=== PATIENT | female | born 1940 | race Caucasian/White ===

== ENCOUNTER → 2023-09-29 08:01 | Outpatient (REF) | payer MEDICARE, SELFPAY ==
[2023-09-29 09:25] LABS: ALT (SGPT) 16 U/L (0-35); AST (SGOT) 20 U/L (14-36); Albumin 4.2 g/dl (3.5-5.0); Alkaline Phosphatase 100 U/L (38-126); Direct Bilirubin 0.3 mg/dl (0.0-0.4); Glucose 129 mg/dl (70-99); HDL Cholesterol 67 mg/dl; LDL Cholesterol, Calculated 142 mg/dl; Total Bilirubin 0.5 mg/dl (0.2-1.3); Total Cholesterol 253 mg/dl (50-199); Total Protein 7.1 g/dl (6.3-8.2); Triglyceride 223 mg/dl (10-149); Very Low Density Lipoprotein 44 mg/dl (0-30)
[2023-09-29 14:35] LABS: Glycohemoglobin (HgbA1c) 6.2 % (4.0-5.6)
== END ==
LOC: REG 08:01
PROVIDERS: ATTENDING PHYSICIAN Internal Medicine
DX: E11.9 Type 2 diabetes mellitus without complications (principal); I10 Essential (primary) hypertension; E78.00 Pure hypercholesterolemia, unspecified; E66.09 Other obesity due to excess calories
CPT/HCPCS: 36415; 80061; 80076; 82947; 83036

== ENCOUNTER → 2024-02-06 08:28 | Outpatient (REF) | payer MEDICARE, SELFPAY ==
[2024-02-06 09:06] LABS: % Basophils 1.2 % (0-2); % Eosinophils 1.9 % (0-6); % Immature Granulocytes 0.8 % (0-0.5); % Lymphocytes 27.8 % (20.5-51.1); % Monocytes 7.6 % (1.7-9.3); % Neutrophils 60.7 % (42.2-75.2); Absolute Basophils 0.1 10^3/uL (0-0.2); Absolute Eosinophils 0.2 10^3/uL (0-0.7); Absolute Immature Granulocytes 0.1 10^3/uL (0-0.05); Absolute Lymphocytes 2.5 10^3/uL (1.2-3.4); Absolute Monocytes 0.7 10^3/uL (0.1-0.6); Absolute Neutrophils 5.4 10^3/uL (1.4-6.5); Hematocrit 40.8 % (37.0-47.0); Hemoglobin 13.6 g/dL (12.0-16.0); Mean Corp Hgb Conc. 33.3 g/dL (33.0-37.0); Mean Corpuscular Hgb 27.7 pg (27.0-31.0); Mean Corpuscular Volume 83.1 fL (81.0-99.0); Mean Platelet Volume 9.5 fL (7.4-10.4); Nucleated Red Blood Cells % 0 %; Platelet Count 341 10^3/uL (130-400); Red Blood Cell Count 4.91 10^6/uL (4.20-5.40); Red Cell Dist. Width 14.3 % (11.5-14.5)
[2024-02-06 09:54] LABS: Glycohemoglobin (HgbA1c) 5.9 % (4.0-5.6)
[2024-02-06 10:28] LABS: ALT (SGPT) 17 U/L (0-35); AST (SGOT) 23 U/L (14-36); Albumin 4.3 g/dl (3.5-5.0); Alkaline Phosphatase 107 U/L (38-126); Blood Urea Nitrogen 16 mg/dl (7-17); Calcium 9.6 mg/dl (8.4-10.2); Carbon Dioxide 18 mmol/L (22-30); Chloride 103 mmol/L (98-107); Glucose 143 mg/dl (70-99); HDL Cholesterol 63 mg/dl; LDL Cholesterol, Calculated 140 mg/dl; Potassium 4.4 mmol/L (3.5-5.1); Sodium 138 mmol/L (135-145); Total Bilirubin 0.5 mg/dl (0.2-1.3); Total Cholesterol 264 mg/dl (50-199); Total Protein 6.9 g/dl (6.3-8.2); Triglyceride 308 mg/dl (10-149); Very Low Density Lipoprotein 61 mg/dl (0-30); eGFR > 60.00
== END ==
LOC: REG 08:28
PROVIDERS: ATTENDING PHYSICIAN Internal Medicine
DX: E11.9 Type 2 diabetes mellitus without complications (principal); E78.00 Pure hypercholesterolemia, unspecified; Z00.00 Encounter for general adult medical examination without abnormal findings
CPT/HCPCS: 36415; 80053; 80061; 83036; 85025

== ENCOUNTER → 2024-02-28 13:23 | Outpatient (REF) | payer MEDICARE, SELFPAY ==
[2024-02-28 15:13] LABS: Vitamin B12 970 pg/ml (239-931)
== END ==
LOC: REG 13:23
PROVIDERS: ATTENDING PHYSICIAN Psychiatry & Neurology Neurology; FAMILY PHYSICIAN Internal Medicine
DX: E53.8 Deficiency of other specified B group vitamins (principal)
CPT/HCPCS: 36415; 82607; 83921

== ENCOUNTER 2024-06-24 11:18 | Emergency (ER) | payer MEDICARE, SELFPAY ==
[2024-06-24 11:44] VITALS: BP 138/78
[2024-06-24 13:40] VITALS: BP 174/96
--- NOTE | 2024-06-24 13:49 | ED.GENMED ---
History of Present Illness
General
Chief Complaint: Fall
Source: patient
Exam Limitations: none
Time Seen by Provider: 06/24/24 13:19
Nursing documentation reviewed up to this point in time: agreed with
History of Present Illness
History of Present Illness:
84-year-old female presents to the ER after mechanical fall and head injury. Patient was at home with caregiver and was standing and missed her footing. She hit her head on the no loss of consciousness. She was assisted up with assistance by
caregiver. She is not on blood thinners. She denies any headache. Daughter and caregiver at bedside. Patient is at baseline mental status. No other injuries or complaints. Patient denies any dizziness chest pain or lightheadedness prior to
episode.
Past History
Past History
ED Past Medical History: GERD, HTN and Other (Arthritis, glaucoma, osteoporosis, Slight dementia)
ED Past Surgical History: Appendectomy, Cholecystectomy and Gynecological (Hysterectomy)
Social History
Tobacco: Former smoker
Alcohol: Occasional
Drug: None
Personal:
Living: with family
Employment: Not employed
Family History
Family History: Other (Dad with COPD)
Review of Systems
Review of Systems
Allergies reviewed?: Yes
All Other Systems: ROS reviewed and negative except as documented in HPI and ROS
Constitutional: Reports no symptoms
Respiratory: Reports no symptoms
Cardiac: Reports no symptoms
ABD/GI: Reports no symptoms; Denies nausea or vomiting
: Reports no symptoms
Musculoskeletal: Reports no symptoms; Denies joint pain, muscle pain, neck pain or back pain
Skin: Reports no symptoms
Neurological: Denies dizzy, headache, weakness or numbness
Phy Exam
General Physical Exam
General Presentation: no apparent distress
General age: appears stated age
General Skin: warm and dry
General Habitus: elderly
General Mental: alert
General Hydration: appears well hydrated
Eye Exam
Eye Exam: PERRL and EOMI
Eye Exam General: PERRL: bilateral and EOM intact: bilateral
Pupil Exam: Bilateral: round and reactive
Neurological Exam
Neurological Exam: alert and oriented x3
Musculoskeletal Exam
Musculoskeletal Exam: full ROM and other (No bony cervical motion tenderness, full range of motion to upper/ lower extremities ;small amount of redness to forehead no break in skin)
Skin Exam
Skin Exam: normal color and warm/dry
Psychiatric Exam
Psychiatric Exam: normal mood/affect
Course
Orders/Labs/Results
Orders:
Orders
06/24/24 11:47
CT Head W/o Iv Contrast Urgent
Comment: no thinners
Reason For Exam: fell and hit face and head
Vital Signs
Initial and Last Documented VS:
Initial Vital Signs
Temp Pulse Resp BP Pulse Ox
98.2 F 110 16 138/78 98
06/24/24 11:44 06/24/24 11:44 06/24/24 11:44 06/24/24 11:44 06/24/24 11:44
Last Documented Vital Signs
Temp Pulse Resp BP Pulse Ox
98.2 F 110 20 174/96 97
06/24/24 11:44 06/24/24 11:44 06/24/24 13:40 06/24/24 13:40 06/24/24 13:40
MDM/Problems Addressed
Differential Diagnosis Includes:
Not limited to head injury, intracranial hemorrhage
MDM/Problems Addressed:
Patient is an 84-year-old female brought in for mechanical fall no blood thinners no loss of consciousness no headache somata redness to forehead with no break in skin CAT scan negative no bony cervical spine tenderness. Patient with good range of
motion to all extremities and with a steady gait at baseline as per family will discharge home.
*Radiology
Radiology exam reviewed: radiology read reviewed
*Pulse Oximetry
Patient hypoxic: no
*Critical Care Note
Total Time (30-74mins, 75-104mins- exclusive of procedures): Not Applicable
ED Attending Note
-
Portions of this chart may have been created with voice recognition software.� Occasional wrong word or��sound alike� substitutions may have occurred due to the inherent limitations of voice recognition software.
Discharge Plan
Departure
Patient Disposition: Home (Routine Discharge)
Date of Disposition: 06/24/24
Time of Disposition: 13:56
Patient with high blood pressure during this ER visit?: Yes
Condition: Fair
Covid-19: Not Applicable
Discharge Problem:
Head injury
Instructions: Head Injury in Adults (DC)
Prescriptions:
No Action
esomeprazole magnesium [Nexium] 40 MG capsule,delayed release(DR/EC)
40 mg PO DAILY
donepezil 10 MG tablet
10 mg PO DAILY
aspirin 81 MG tablet,chewable
81 mg PO DAILY
zolpidem 10 MG tablet
10 mg PO HS
pregabalin 75 MG capsule
150 mg PO BID
travoprost (benzalkonium) 2.5 ML drops
1 drp BOTH EYES HS
cyanocobalamin (vitamin B-12) 100 MCG tablet
1,000 mcg PO DAILY
triamcinolone acetonide 1 APPLIC cream
1 applic S .DAILY-2WKSON 2WKSOF
Patient Comments:
bilateral legs rash 2 weeks on and 2 weeks none or off.
dimethicone [Cerave Baby Moisturizing] 237 ML lotion
1 dose TP DAILY
Patient Comments:
apply over triamcinolone cream to arms and legs and may wrap in saran wrap.
gabapentin 100 MG capsule
200 mg PO BID
duloxetine 30 MG capsule,delayed release(DR/EC)
30 mg PO BID
Referrals:
Branden Dunn MD [Family Provider] -
Activity Restrictions/Additional Instructions:
As discussed CAT scan was negative. Patient may have Tylenol if needed. Follow-up with family doctor in the next several days for reevaluation .
return if any worsening of symptoms.
Interventions
Interventions:
*Risk Screen - Suicide Last Done: 06/24/24 11:44
*General Assessment Last Done: 06/24/24 13:53
*Neglect/Abuse Screening Last Done: 06/24/24 11:44
ED- Fall Risk Assessment Last Done: 06/24/24 13:54
*ED COVID-19 Vaccine History Last Done: 06/24/24 13:53
Discharge Date and Time
Print Language: URDU
[2024-06-24 13:52] VITALS: BMI 32.2
== END 2024-06-24 14:10 | disposition home or self-care (01) ==
LOC: EMR 11:18
PROVIDERS: EMERGENCY PHYSICIAN Student in an Organized Health Care Education/Training Program; FAMILY PHYSICIAN Internal Medicine
DX: S09.90XA Unspecified injury of head, initial encounter (principal); W18.39XA Other fall on same level, initial encounter; M81.0 Age-related osteoporosis without current pathological fracture; I10 Essential (primary) hypertension; K21.9 Gastro-esophageal reflux disease without esophagitis; Z87.891 Personal history of nicotine dependence; Z90.49 Acquired absence of other specified parts of digestive tract; Z90.710 Acquired absence of both cervix and uterus
CPT/HCPCS: 99284; 70450

== ENCOUNTER → 2024-07-30 08:03 | Outpatient (REF) | payer MEDICARE, SELFPAY ==
[2024-07-30 09:19] LABS: ALT (SGPT) 18 U/L (0-35); AST (SGOT) 20 U/L (14-36); Albumin 4.1 g/dl (3.5-5.0); Alkaline Phosphatase 102 U/L (38-126); Direct Bilirubin 0.2 mg/dl (0.0-0.4); Glucose 136 mg/dl (70-99); HDL Cholesterol 63 mg/dl; LDL Cholesterol, Calculated 85 mg/dl; Total Bilirubin 0.7 mg/dl (0.2-1.3); Total Cholesterol 196 mg/dl (50-199); Total Protein 6.4 g/dl (6.3-8.2); Triglyceride 244 mg/dl (10-149); Very Low Density Lipoprotein 48 mg/dl (0-30)
[2024-07-30 11:12] LABS: Glycohemoglobin (HgbA1c) 5.8 % (4.0-5.6)
== END ==
LOC: REG 08:03
PROVIDERS: ATTENDING PHYSICIAN Internal Medicine
DX: E11.9 Type 2 diabetes mellitus without complications (principal); E66.09 Other obesity due to excess calories; I10 Essential (primary) hypertension
CPT/HCPCS: 36415; 80061; 80076; 82947; 83036

== ENCOUNTER 2024-10-28 13:16 | Emergency (ER) | payer MEDICARE, SELFPAY ==
[2024-10-28 13:33] VITALS: BP 179/101
--- NOTE | 2024-10-28 16:33 | ED.GENMED ---
History of Present Illness
General
Chief Complaint: Fall
Source: patient, family and manager wound care
Time Seen by Provider: 10/28/24 16:20
History of Present Illness
History of Present Illness:
Patient lost her balance getting up from a chair hit her left lateral eye and hit her left ribs. Complaining of pain. This occurred this morning. No thinners. No LOC. No syncope. No abdominal pain nausea vomiting unusual headache or other
complaints
Past History
Past History
ED Past Medical History: GERD, HTN and Other (Arthritis, glaucoma, osteoporosis, Slight dementia)
ED Past Surgical History: Appendectomy, Cholecystectomy and Gynecological (Hysterectomy)
Social History
Tobacco: Former smoker
Alcohol: Occasional
Drug: None
Personal:
Living: with family
Employment: Not employed
Family History
Family History: Other (Dad with COPD)
Review of Systems
Review of Systems
All Other Systems: Not applicable
ABD/GI: Reports no symptoms
Phy Exam
Physical Exam
Physical Exam:
TRAUMA EXAM:
VITAL SIGNS: Vital signs reviewed, cooperative
DISTRESS: No active disease
EYES: Pupils reactive, no orbital trauma
NOSE: No deformity or epistaxis
FACE AND SCALP: No scalp trauma, external canals no blood. Ecchymosis of the left eyebrow tenderness left lateral chest wall
NECK: Supple nontender
BACK: Back nontender, pelvis stable to compression
RESPIRATORY: No distress, breath sounds normal, no tender chest wall
CARDIAC: No murmur, pulses equal and strong
ABDOMEN: Soft nontender bowel sounds normal. Specifically no left upper quadrant tenderness. This was checked multiple times
SKIN: Skin intact no bleeding, color normal
EXTREMITIES: Nontender
NEUROLOGICAL: Alert, oriented, no motor deficits
PSYCH: Mood affect normal
Course
Orders/Labs/Results
Orders:
Orders
10/28/24 13:36
CT Head W/o Iv Contrast Urgent
Comment:
Reason For Exam: hit head on wall
Ribs, Left 3 View W/PA Chest CR [CR Ribs-left 3 Vw W/pa Chest] Urgent
Comment:
Reason For Exam: left rib pain from fall
10/28/24 16:35
Acetaminophen [Tylenol] 650 mg PO NOW STA
Vital Signs
Initial and Last Documented VS:
Initial Vital Signs
Temp Pulse Resp BP Pulse Ox
98.5 F 94 18 179/101 98
10/28/24 13:33 10/28/24 13:33 10/28/24 13:33 10/28/24 13:33 10/28/24 13:33
Last Documented Vital Signs
Temp Pulse Resp BP Pulse Ox
98.5 F 94 18 179/101 98
10/28/24 13:33 10/28/24 13:33 10/28/24 13:33 10/28/24 13:33 10/28/24 13:33
MDM/Problems Addressed
Differential Diagnosis Includes:
No syncope no significant head injury. CT negative. Ribs are stable. No left upper quadrant tenderness nothing to suspect a splenic injury. Symptomatic treatment and follow-up
*Critical Care Note
Total Time (30-74mins, 75-104mins- exclusive of procedures): Not Applicable
ED Attending Note
-
Portions of this chart may have been created with voice recognition software.� Occasional wrong word or��sound alike� substitutions may have occurred due to the inherent limitations of voice recognition software.
Discharge Plan
Departure
Patient Disposition: Home (Routine Discharge)
Date of Disposition: 10/28/24
Time of Disposition: 16:34
Patient with high blood pressure during this ER visit?: Yes
Discharge Problem:
Fall/head injury, Left eyebrow contusion, Left blunt chest trauma
Instructions: Head Injury in Adults (DC), Blunt Chest Trauma (DC), BLOOD PRESSURE
Prescriptions:
No Action
esomeprazole magnesium [Nexium] 40 MG capsule,delayed release(DR/EC)
40 mg PO DAILY
donepezil 10 MG tablet
10 mg PO DAILY
aspirin 81 MG tablet,chewable
81 mg PO DAILY
zolpidem 10 MG tablet
10 mg PO HS
pregabalin 75 MG capsule
150 mg PO BID
travoprost (benzalkonium) 2.5 ML drops
1 drp BOTH EYES HS
cyanocobalamin (vitamin B-12) 100 MCG tablet
1,000 mcg PO DAILY
triamcinolone acetonide 1 APPLIC cream
1 applic S .DAILY-2WKSON 2WKSOF
Patient Comments:
bilateral legs rash 2 weeks on and 2 weeks none or off.
dimethicone [Cerave Baby Moisturizing] 237 ML lotion
1 dose TP DAILY
Patient Comments:
apply over triamcinolone cream to arms and legs and may wrap in saran wrap.
gabapentin 100 MG capsule
200 mg PO BID
duloxetine 30 MG capsule,delayed release(DR/EC)
30 mg PO BID
Referrals:
Branden Dunn MD [Family Provider, Internal Medicine] - Follow up in 2-3 days
Activity Restrictions/Additional Instructions:
Tylenol for pain
Return with increased pain shortness of breath abdominal pain unusual headache vomiting or any other concerning symptoms
Interventions
Interventions:
*Risk Screen - Suicide Last Done: 10/28/24 13:33
*General Assessment Last Done: 10/28/24 13:33
*Neglect/Abuse Screening Last Done: 10/28/24 13:33
*ED- Fall Risk Assessment Last Done: 10/28/24 13:33
*ED COVID-19 Vaccine History Last Done: 10/28/24 13:33
*Nursing Disposition Last Done: 10/28/24 17:11
ED-Musculoskeletal Assessment Last Done: 10/28/24 16:25
ED- Neurological Assessment Last Done: 10/28/24 16:24
ED-Skin Assessment Last Done: 10/28/24 16:24
Discharge Date and Time
Discharge Date/Time: 10/28/24 17:12
Print Language: GAMBIAN
[2024-10-28] MEDS: TYLENOL 650 MG PO (16:54)
== END 2024-10-28 17:12 | disposition home or self-care (01) ==
LOC: EMR 13:16
PROVIDERS: EMERGENCY PHYSICIAN Emergency Medicine; FAMILY PHYSICIAN Internal Medicine
DX: S09.90XA Unspecified injury of head, initial encounter (principal); S00.12XA Contusion of left eyelid and periocular area, initial encounter; S29.9XXA Unspecified injury of thorax, initial encounter; W01.198A Fall on same level from slipping, tripping and stumbling with subsequent striking against other object, initial encounter; I10 Essential (primary) hypertension; Z87.891 Personal history of nicotine dependence
CPT/HCPCS: 99285; 70450; 71101

== ENCOUNTER → 2024-11-20 07:56 | Outpatient (REF) | payer MEDICARE, SELFPAY ==
[2024-11-20 09:22] LABS: ALT (SGPT) 20 U/L (0-35); AST (SGOT) 23 U/L (14-36); Albumin 4.5 g/dl (3.5-5.0); Alkaline Phosphatase 104 U/L (38-126); Glucose 141 mg/dl (70-99); HDL Cholesterol 63 mg/dl; LDL Cholesterol, Calculated 86 mg/dl; Total Protein 7.1 g/dl (6.3-8.2); Very Low Density Lipoprotein 51 mg/dl (0-30)
[2024-11-20 09:25] LABS: Glycohemoglobin (HgbA1c) 6.2 % (4.0-5.6)
== END ==
LOC: REG 07:56
PROVIDERS: ATTENDING PHYSICIAN Internal Medicine
DX: E11.9 Type 2 diabetes mellitus without complications (principal); E78.5 Hyperlipidemia, unspecified; E66.9 Obesity, unspecified
CPT/HCPCS: 36415; 80061; 80076; 82947; 83036

== ENCOUNTER → 2025-02-11 08:33 | Outpatient (REF) | payer MEDICARE, SELFPAY ==
[2025-02-11 09:35] LABS: Hematocrit 41.6 % (37.0-47.0); Hemoglobin 13.7 g/dL (12.0-16.0); Mean Corp Hgb Conc. 32.9 g/dL (33.0-37.0); Mean Corpuscular Volume 86.0 fL (81.0-99.0); Nucleated Red Blood Cells % 0 %; Platelet Count 357 10^3/uL (130-400); Red Cell Dist. Width 14.2 % (11.5-14.5)
[2025-02-11 10:18] LABS: ALT (SGPT) 16 U/L (0-35); AST (SGOT) 20 U/L (14-36); Albumin 4.3 g/dl (3.5-5.0); Alkaline Phosphatase 101 U/L (38-126); Blood Urea Nitrogen 11 mg/dl (7-17); Calcium 9.6 mg/dl (8.4-10.2); Carbon Dioxide 25 mmol/L (22-30); Chloride 104 mmol/L (98-107); Glucose 144 mg/dl (70-99); HDL Cholesterol 69 mg/dl; LDL Cholesterol, Calculated 97 mg/dl; Potassium 4.5 mmol/L (3.5-5.1); Sodium 139 mmol/L (135-145); Total Protein 7.4 g/dl (6.3-8.2); Very Low Density Lipoprotein 53 mg/dl (0-30); eGFR > 60.00
[2025-02-11 11:46] LABS: Glycohemoglobin (HgbA1c) 6.2 % (4.0-5.6)
== END ==
LOC: REG 08:33
PROVIDERS: ATTENDING PHYSICIAN Internal Medicine
DX: E11.9 Type 2 diabetes mellitus without complications (principal); E78.5 Hyperlipidemia, unspecified; I10 Essential (primary) hypertension; E66.9 Obesity, unspecified; Z00.01 Encounter for general adult medical examination with abnormal findings
CPT/HCPCS: 36415; 80053; 80061; 83036; 85025